=== PATIENT | male | born 1980 | race Caucasian/White ===

== ENCOUNTER → 2016-06-03 | Outpatient (CLI) | payer OTHER ==
--- NOTE | 2016-06-04 03:32 | KCIC ---
PROCEDURE MRI left thigh without contrast dated 06/03/2016. HISTORY Hamstring pain and limited range of motion for a few days. Previous history of tear. TECHNIQUE T1 and T2 weighted imaging performed in 3 planes to include the proximal and distal left via. No contrast administered. COMPARISON None. FINDINGS There is focal edema of the distal biceps femoris near the musculotendinous junction, with ill definition of the tendon distally for a very short segment. Trace amount of fluid along the fascial margins with no significant retraction. Minimal increased T2 signal in the muscle substance. The proximal hamstring tendon complex is intact. Thigh musculature is otherwise intact. Bone marrow signal is homogeneous. No marrow edema. No periostitis or bone destruction. Limited imaged portions of the knee joint unremarkable. There is some mild increased T2 signal within the distal quadriceps tendon at its upper patellar pole attachment. Images of the hip joint unremarkable. There is mild increased signal within the gluteus minimus and gluteus medius tendons at their trochanteric attachment. Minimal trochanteric bursal fluid. IMPRESSION - Small intermediate to low grade strain of the distal biceps femoris musculotendinous junction with possible small partial thickness tear. No definite full thickness tear or tendon retraction. - Mild gluteus minimus and gluteus medius tendinosis on the left. There is a trace amount of trochanteric bursal fluid. - Mild distal quadriceps tendinosis. Electronically signed by: Hiren Rivera (Jun 04, 2016 03:31:36)
== END | disposition home or self-care (01) ==
LOC: KCIC MRI 16:00
PROVIDERS: ATTEND Family Medicine
DX: S76.312A Strain of muscle, fascia and tendon of the posterior muscle group at thigh level, left thigh, initial encounter (principal)
CPT/HCPCS: 73718